=== PATIENT | male | born 1955 | race Caucasian/White ===

== ENCOUNTER 2023-02-20 06:02 | Day surgery (SDC) | payer MEDICARE ==
[2023-02-17 09:27] VITALS: BMI 37.5
[2023-02-20] MEDS ORDERED: EPINEPHrine 1 MG/ML VIAL ONE (07:53)
[2023-02-20] MEDS ORDERED: Bupivacaine PF 0.5% 30 ML VIAL ONE (07:53)
[2023-02-20] MEDS ORDERED: PROPOFOL 20 ML ONE (08:01)
[2023-02-20] MEDS ORDERED: fentaNYL 50 mcg/mL 1 mL Vial ONE (08:01)
[2023-02-20] MEDS ORDERED: Dexamethasone 20 MG/5 ML VIAL ONE (08:01)
[2023-02-20] MEDS ORDERED: Lidocaine 1% PF 5 ML VIAL ONE (08:01)
[2023-02-20] MEDS ORDERED: Ondansetron PF 4 MG/2 ML Vial ONE (08:01)
[2023-02-20] MEDS ORDERED: CEFAZOLIN 2 GM VIAL ONE (08:05)
[2023-02-20] MEDS ORDERED: CEFAZOLIN 1 GM VIAL ONE (08:24)
[2023-02-20] MEDS ORDERED: PHENYLEPHRINE-NS 100 MCG/ML 10 ML SYRINGE ONE (08:30)
[2023-02-20] MEDS ORDERED: ePHEDrine Sulfate 50 MG/10 ML VIAL ONE (08:30)
[2023-02-20] MEDS ORDERED: HYDROcodone/Acetaminophen 5/325 mg Tablet PO PRN (09:02)
[2023-02-20] MEDS ORDERED: Acetaminophen 325 MG TAB PO PRN (09:02)
== END 2023-02-20 09:45 | disposition home or self-care (01) ==
LOC: CSHSDC 06:02
PROVIDERS: ATTEND Surgery
PROC: 05HM33Z Insertion of Infusion Device into Right Internal Jugular Vein, Percutaneous Approach (ICD-10-PCS; principal; 2023-02-20)
DX: C43.4 Malignant melanoma of scalp and neck (principal); I10 Essential (primary) hypertension; I25.10 Atherosclerotic heart disease of native coronary artery without angina pectoris; I48.0 Paroxysmal atrial fibrillation; E78.00 Pure hypercholesterolemia, unspecified; J45.909 Unspecified asthma, uncomplicated; E66.9 Obesity, unspecified; Z79.82 Long term (current) use of aspirin; Z68.37 Body mass index [BMI] 37.0-37.9, adult; Z95.5 Presence of coronary angioplasty implant and graft; Z86.73 Personal history of transient ischemic attack (TIA), and cerebral infarction without residual deficits; Z79.899 Other long term (current) drug therapy
CPT/HCPCS: 36561; 71045; J0171; J3010; C1788; J0690; J1100; J1642; J2405; J2704; S0020